=== PATIENT | female | born 1945 | race Two or more races ===

== ENCOUNTER 2021-05-23 15:56 | Emergency (ER) | payer SELFPAY ==
[~2021-05-23] VITALS: Ht 160 cm; Wt 72.6 kg
[2021-05-23 21:46] VITALS: BP 191/85
[2021-05-23] MEDS ORDERED: KETOROLAC TROMETH 60MG/2ML VIAL IM ONE (22:00)
== END 2021-05-23 23:54 | disposition home or self-care (01) ==
LOC: ER 15:56
DX: S43.102A Unspecified dislocation of left acromioclavicular joint, initial encounter (principal); M54.32 Sciatica, left side; S73.102A Unspecified sprain of left hip, initial encounter; S73.101A Unspecified sprain of right hip, initial encounter; M53.3 Sacrococcygeal disorders, not elsewhere classified; R51.9 Headache, unspecified; Z88.6 Allergy status to analgesic agent; W01.0XXA Fall on same level from slipping, tripping and stumbling without subsequent striking against object, initial encounter; Y93.89 Activity, other specified; Y92.89 Other specified places as the place of occurrence of the external cause; Y99.8 Other external cause status
CPT/HCPCS: 29105; 70450; 72192; 73030; 96372; 99284; J1885